=== PATIENT | female | born 1940 | race Caucasian/White ===

== ENCOUNTER 2024-07-25 10:54 | Emergency (ER) | payer OTHER, SELFPAY ==
[2024-07-25 10:57] VITALS: BP 145/64
--- NOTE | 2024-07-25 11:32 | ED.MUSCINJ ---
HPI-Injury
General
Chief Complaint: Musculo-Skeletal Complaint
Source: patient
Exam Limitations: none
Time Seen by Provider: 07/25/24 11:14
Nursing documentation reviewed up to this point in time: agreed with
History of Present Illness-Injury
Initial Injury comments:
83-year-old female with history HTN, HLD, hypothyroid, NIDDM states she was bending over to pick something up off the floor yesterday, fell forward injuring her right wrist. She denies hitting her head or any other injury. She states it did not
feel too bad yesterday but today woke up with more pain and swelling.
Past History
Past History
ED Past Medical History: HTN, Hypercholesterolemia, NIDDM and Hypothyroidism
ED Past Surgical History: Gynecological (Left mastectomy)
Social History
Tobacco: Non-smoker
Alcohol: None
Personal:
Living: alone
Review of Systems
Review of Systems
Allergies reviewed?: Yes
All Other Systems: ROS reviewed and negative except as documented in HPI and ROS
Respiratory: Denies trouble breathing
Cardiac: Denies chest pain
ABD/GI: Denies abdominal pain
Musculoskeletal: Reports other (Pain and swelling right wrist); Denies neck pain or back pain
Skin: Reports no symptoms
Neurological: Reports no symptoms
Musculoskeletal Injury Exam
Musculoskeletal Injury Exam
Right Wrist:
Pain with Movement?: Moderate
Tender to palpation?: Moderate
Soft tissue swelling?: Moderate
External deformity and angulation?: None
Strain- Sprain- Tear (Connective tissue injury)?: Moderate
Joint instability?: No
Malalignment/deformity?: No
Range of motion: Limited
Distal skin color and temperature: normal-warm & good color
Capillary Refill: normal
Normal distal neurovascular exam?: Yes
Phy Exam
Physical Exam
Physical Exam:
GENERAL: No acute distress. A&Ox3.
CONSTITUTIONAL: Afebrile.
EYES: clear, conjunctivae normal
ENMT: moist mucus membranes
RESPIRATORY: Regular respirations, nonlabored, lungs clear.
CARDIOVASCULAR: Regular rate and rhythm, no murmurs, no rubs.
GI: Soft, nontender, normal BS
MUSCULOSKELETAL: No spinal bony tenderness. Moves with ease. Well perfused.
SKIN: Warm, dry, pink
PSYCH: Normal mood and affect. Well kept, interactive and appropriate
NEUROLOGIC: Awake, alert and oriented. No focal neurological deficits
Injury Course
Orders/Labs/Results
Orders:
Orders
07/25/24 11:02
CR Wrist - Right Min 3 Views Urgent
Comment:
Reason For Exam: Injury
07/25/24 11:36
Volar Right-Treatment ONCE
Procedures
Splinting/Sling Placement
Right Wrist:
Procedure completed by: I Day DIECAST MACHINE OPERATOR
Pre-splint extermity exam: neurovascular intact
Type of splint: volar
Splint material: fiberglass
Normal distal neurovascular exam?: Yes
MDM/Problems Addressed
MDM/Problems Addressed:
83-year-old female with history HTN, HLD, hypothyroid, NIDDM states she was bending over to pick something up off the floor yesterday, fell forward injuring her right wrist. She denies hitting her head or any other injury. She states it did not
feel too bad yesterday but today woke up with more pain and swelling.
*Critical Care Note
Total Time (30-74mins, 75-104mins- exclusive of procedures): Not Applicable
ED Attending Note
-
Portions of this chart may have been created with voice recognition software.� Occasional wrong word or��sound alike� substitutions may have occurred due to the inherent limitations of voice recognition software.
Discharge Plan
Departure
Patient Disposition: Home (Routine Discharge)
Date of Disposition: 07/25/24
Time of Disposition: 11:36
Patient with high blood pressure during this ER visit?: No
Condition: Good
Discharge Problem:
Fall from slip, trip, or stumble, Fracture of right wrist
Instructions: Using Cold for Pain, Wrist Fracture
Referrals:
Raul uNnn MD [Active] - Call in 1-3 days for appt
Raciel Swift DO [Family Provider] -
Activity Restrictions/Additional Instructions:
As we discussed, keep the splint on until further instructed by the orthopedic doctor.
Tylenol as needed for pain.
Interventions
Interventions:
*Risk Screen - Suicide Last Done: 07/25/24 11:12
*General Assessment Last Done: 07/25/24 11:14
*Neglect/Abuse Screening Last Done: 07/25/24 11:12
*ED COVID-19 Vaccine History Last Done: 07/25/24 11:14
*Nursing Disposition Last Done: 07/25/24 11:45
ED-Musculoskeletal Assessment Last Done: 07/25/24 11:14
Discharge Date and Time
Discharge Date/Time: 07/25/24 11:49
Print Language: [id number]
== END 2024-07-25 11:49 | disposition home or self-care (01) ==
LOC: EMR 10:54
PROVIDERS: EMERGENCY PHYSICIAN Emergency Medicine; FAMILY PHYSICIAN Family Medicine
DX: S52.501A Unspecified fracture of the lower end of right radius, initial encounter for closed fracture (principal); S52.614A Nondisplaced fracture of right ulna styloid process, initial encounter for closed fracture; W01.0XXA Fall on same level from slipping, tripping and stumbling without subsequent striking against object, initial encounter; E03.9 Hypothyroidism, unspecified; E11.9 Type 2 diabetes mellitus without complications; E78.00 Pure hypercholesterolemia, unspecified; I10 Essential (primary) hypertension; Z90.12 Acquired absence of left breast and nipple
CPT/HCPCS: 29125; 99283; 73110